=== PATIENT | female | born 1950 | race Caucasian/White ===

== ENCOUNTER → 2017-11-26 10:33 | Outpatient (CLI) | payer MEDICARE, OTHER, SELFPAY ==
--- NOTE | 2017-11-26 | DI.CT.S_ITS ---
PROCEDURE: CT FACIAL BONES WO CON INDICATIONS: Severe bilateral TMJ pain TECHNIQUE: Noncontrast 2.5 mm thick axial images acquired from the mandible through the frontal sinuses, with coronal and sagittal reformatting. For radiation dose reduction, the following was used: automated exposure control, adjustment of mA and/or kV according to patient size. COMPARISON: None. FINDINGS: Image quality: Excellent. Bones and teeth: Orbital casillas are intact. Sinus casillas show no fracture or deformity. Nasal bones and septum are intact. Visualized portions of the mandible demonstrate no fractures or subluxation. Cortical irregularity and periarticular osteophyte formation at the bilateral temporomandibular joints is present. Small subchondral cysts within the left mandibular condyle are present. Zygomatic arches are intact. Pterygoid plates are intact. Visualized portions of the skull base and auditory canals are intact. Sinuses: Paranasal sinuses are aerated, without fluid levels, mucosal thickening, or mucoceles. Mastoid air cells are aerated. There is mild leftward deviation of the posterior nasal septum. Right middle turbinate meng bullosa is present. Soft tissues: No edema, masses, or fluid collections. No enlarged lymph nodes. No soft tissue lacerations or debris. Vascular: Visualized vascular structures appear normal in the absence of contrast. Bony vascular foramina and canals are intact. IMPRESSION: 1. Osteoarthritis of the bilateral temporomandibular joints. 2. No fracture. Dictated by: Navdeep Bundy M.D. on 11/26/2017 at 13:29 Approved by: Navdeep Bundy M.D. on 11/26/2017 at 13:32
== END ==
PROVIDERS: PCP Family Medicine; Visit Provider Family Medicine
DX: M26.69 Other specified disorders of temporomandibular joint (principal)
CPT/HCPCS: 70486

== ENCOUNTER → 2023-10-17 11:37 | Outpatient (CLI) | payer OTHER, SELFPAY ==
--- NOTE | 2023-10-17 11:39 | DI.CT.S_ITS ---
PROCEDURE: CT CHEST WO CON INDICATIONS: Solitary pulmonary nodule TECHNIQUE: Noncontrast 5 mm thick sections acquired from the pulmonary apices to the posterior costophrenic angles. 1 mm lung window, 5 mm thick coronal and sagittal and 7 mm axial MIP reformats were then acquired. For radiation dose reduction, the following was used: automated exposure control, adjustment of mA and/or kV according to patient size. COMPARISON: [facility], , CT CHEST HIGH RES, 03/12/2023, 10:47. FINDINGS: Image quality: Diagnostic Lungs: Scarring in bilateral apices. 8 mm pulmonary nodule in the right lung apex, unchanged from prior exam. 6 mm pulmonary nodule in the left upper lobe (series 3, image 101), unchanged from prior exam. No pleural effusion or pneumothorax. No pulmonary edema or focal consolidation. Soft tissue/mediastinum: Mild calcification of the thoracic aorta. No thoracic aorta aneurysm postop heart is normal in size. No pericardial effusion. No significant coronary artery calcification. No mediastinal, hilar, lymphadenopathy. No visualized right axillary lymphadenopathy. No left axillary lymphadenopathy. Bilateral breast implants. Visualized abdomen: Unremarkable Bones: Anterior fusion instrumentation of the lower cervical spine, partially visualized. Mild retrolisthesis of L1 on L2 with moderate degenerative disc disease. IMPRESSION: Two pulmonary nodules, with the larger 1 measuring 8 mm, unchanged from 03/12/2023. Recommend CT chest follow-up at 18-24 months from the initial study. Dictated by: Shilpa King M.D. on 10/17/2023 at 15:00 Approved by: Shilpa King M.D. on 10/17/2023 at 15:10
== END ==
LOC: CT 11:38
PROVIDERS: PCP Physician Assistant; Referring Provider Internal Medicine; Visit Provider Internal Medicine
DX: R91.8 Other nonspecific abnormal finding of lung field (principal)
CPT/HCPCS: 71250